=== PATIENT | female | born 1955 | race Caucasian/White ===

== ENCOUNTER → 2020-05-12 | Outpatient (CLI) | payer OTHER | LOC: LABNPT 06:45 | PROVIDERS: ATTEND Orthopaedic Surgery | DX: Z01.812 Encounter for preprocedural laboratory examination (principal); Z20.822 Contact with and (suspected) exposure to COVID-19 | CPT/HCPCS: 87635 ==

== ENCOUNTER 2021-04-20 15:32 | Emergency (ER) | payer OTHER ==
[~2021-04-20] VITALS: Ht 165 cm; Wt 72.7 kg
[2021-04-20 16:32] LABS: BASOPHILS # (AUTO) 0.1 10^3/uL (0.0-0.1); BASOPHILS % (AUTO) 1 % (0-10); EOSINOPHILS # (AUTO) 0.1 10^3/uL (0.0-0.3); EOSINOPHILS % (AUTO) 1 % (0-10); HEMATOCRIT 47 % (35-52); HEMOGLOBIN 15.6 g/dL (11.5-16.0); LYMPHOCYTES # (AUTO) 1.5 10^3/uL (1.0-4.0); LYMPHOCYTES % (AUTO) 15 % (12-44); MEAN CORPUSCULAR HEMOGLOBIN 30 pg (25-34); MEAN CORPUSCULAR HGB CONC 33 g/dL (32-36); MEAN CORPUSCULAR VOLUME 89 fL (80-99); MEAN PLATELET VOLUME 9.1 fL (9.0-12.2); MONOCYTES # (AUTO) 0.6 10^3/uL (0.0-1.0); MONOCYTES % (AUTO) 6 % (0-12); NEUTROPHILS # (AUTO) 8.2 10^3/uL (1.8-7.8); NEUTROPHILS % (AUTO) 78 % (42-75); PLATELET COUNT 360 10^3/uL (130-400); WHITE BLOOD COUNT 10.6 10^3/uL (4.3-11.0)
[2021-04-20 16:33] LABS: ALBUMIN 4.8 GM/DL (3.2-4.5); CHLORIDE 105 MMOL/L (98-107); POTASSIUM 4.3 MMOL/L (3.6-5.0); SODIUM 138 MMOL/L (135-145)
[2021-04-20 16:34] LABS: CALCIUM 9.9 MG/DL (8.5-10.1)
[2021-04-20 16:35] LABS: GLUCOSE 135 MG/DL (70-105); TOTAL PROTEIN 8.5 GM/DL (6.4-8.2)
[2021-04-20 16:36] LABS: CARBON DIOXIDE 21 MMOL/L (21-32)
[2021-04-20 16:37] LABS: BILIRUBIN,TOTAL 1.2 MG/DL (0.1-1.0); INR 0.9 (0.8-1.4)
[2021-04-20 16:39] LABS: ALKALINE PHOSPHATASE 88 U/L (40-136); CREATININE SERUM 0.98 MG/DL (0.60-1.30); GFR ESTIMATED 64
[2021-04-20 16:40] LABS: BUN/CREATININE RATIO 14
[2021-04-20 16:42] LABS: ALANINE AMINOTRANSFERASE 28 U/L (0-55)
--- NOTE | 2021-04-20 16:44 | Diagnostic Imaging Report ---
PROCEDURE: CT head wo r/o stroke. TECHNIQUE: Multiple contiguous axial images were obtained through the brain without the use of intravenous contrast. Auto Exposure Controls were utilized during the CT exam to meet ALARA standards for radiation dose reduction. INDICATION: Neurologic deficit with confusion CT HEAD: CT images of the head were obtained. FINDINGS: Ventricles and sulci are within normal limits for size. There is no intracranial hemorrhage identified. There is no abnormal mass effect or shift of midline structures. IMPRESSION: Unremarkable CT of the head. Dictated by: Dictated on workstation # [id number]
--- NOTE | 2021-04-20 16:45 | Diagnostic Imaging Report ---
INDICATION: Confusion, panic attacks. FINDINGS: The lungs are clear. There is no failure, effusion or pneumothorax. IMPRESSION: No acute appearing abnormality. Dictated by: Dictated on workstation # [id number]
[2021-04-20 17:24] LABS: BILIRUBIN,URINE NEGATIVE (NEGATIVE); CLARITY,URINE SL CLOUDY; COLOR,URINE YELLOW; GLUCOSE, URINE (UA) NEGATIVE (NEGATIVE); KETONES,URINE NEGATIVE (NEGATIVE); LEUKOCYTE ESTERASE ,URINE 3+ (NEGATIVE); NITRITE,URINE NEGATIVE (NEGATIVE); PROTEIN,URINE NEGATIVE (NEGATIVE)
[2021-04-20 17:32] LABS: BACTERIA,URINE FEW /HPF; RBC,URINE 0-2 /HPF; SQUAMOUS EPITHELIAL CELL,UR 0-2 /HPF
[2021-04-20] MEDS ORDERED: CEPH500T PO (18:17)
--- NOTE | 2021-04-20 18:17 | ED Neurological Problem ---
General Chief Complaint: Neurological Problems Stated Complaint: L ARM WEAKNESS, STROKE SYMPTOMS Nursing Triage Note: AMB TO ED PATIENT STATES HER THOUGHTS ARE NOT CLEAR. TO ROOM REPORTS TEXTED HER AT 230 PM SHE WAS FINE WHEN HE GOT HOME WAS IN WHAT HE DESCRIBES A PANIC ATTACK ON ADMIT ANSWERS QUESTION. BUT TEARFUL WANTING TO KNOW WHERE IS. Source: patient Exam Limitations: no limitations History of Present Illness Date Seen by Provider: Apr 20, 2021 Time Seen by Provider: 15:48 Initial Comments This is 66-year-old emotionally distressed and tearful woman presents to the emergency room with vague complaints of simply not feeling right. She is having some difficulty with memory of events today although she is technically alert and oriented. She has no focal neurologic deficits although she does state earlier her left arm felt weak. No objective neurologic deficits are found on exam. Patient has had a distressing week as there has been discussion about her brother's cancer diagnosis. She received a message from him this morning that was possibly upsetting. Patient did not initially remember many details about this issue. Patient has a history of breast cancer herself which may make the news about her brother's cancer more distressing. Dr. Albin Ureña is her primary care provider. Allergies and Home Medications Patient Home Medication List Home Medication List Reviewed: Yes Cephalexin (Cephalexin) 500 Mg Tablet, 500 MG PO TID Prescribed by: SHAWN ROSARIO on 04/20/211816 Review of Systems Review of Systems Constitutional: no symptoms reported Eyes: No Symptoms Reported Ears, Nose, Mouth, Throat: no symptoms reported Respiratory: no symptoms reported Cardiovascular: see HPI Gastrointestinal: no symptoms reported Genitourinary: no symptoms reported : No Musculoskeletal: no symptoms reported Skin: no symptoms reported Psychiatric/Neurological: See HPI Endocrine: No Symptoms Reported Hematologic/Lymphatic: No Symptoms Reported Past Qumrbuj-Bbshpo-Pijidt Hx Patient Social History Tobacco Use?: No Substance use?: No Immunizations Up To Date First/Initial COVID19 Vaccinat: YES Second COVID19 Vaccination Tristian: YES COVID19 Vaccine Gem Technician: ? Past Medical History Surgeries: Yes Abdominal (Hernia), Breast (Lumpectomy), Orthopedic (Bilateral thumbs and trigger finger) Respiratory: No Cardiac: Yes Hypertension Neurological: No : No Reproductive Disorders: No Genitourinary: No Gastrointestinal: No Musculoskeletal: No Endocrine: No HEENT: No Cancer: Yes Breast What Type of Treatment Did You: Chemotherapy, Radiation, Surgical Intervention Psychosocial: No Physical Exam Vital Signs Vital Signs - First Documented 04/20/21 15:35 Temp 36.5 Pulse 116 Resp 18 B/P (MAP) 182/87 (118) Pulse Ox 98 O2 Delivery Room Air Capillary Refill : Less Than 3 Seconds Height, Weight, BMI Height: '" Weight: lbs. oz. kg; 26.00 BMI Method: General Appearance: WD/WN, mild distress (Mildly anxious, tearful) HEENT: PERRL/EOMI, normal ENT inspection Neck: normal inspection Respiratory: lungs clear, normal breath sounds, no respiratory distress Cardiovascular: regular rate, rhythm, no edema, no murmur Gastrointestinal: normal bowel sounds, non tender, soft Extremities: normal inspection, no pedal edema Neurologic/Psychiatric: education reporter II-XII nml as tested, no motor/sensory deficits, alert, oriented x 3, other (Anxious, tearful) Crainal Nerves: normal hearing, normal speech, PERRL Coordination/Gait: normal finger to nose, normal gait Motor/Sensory: no motor deficit, no sensory deficit Skin: normal color, warm/dry Stroke NIH Stroke Scale Assessment Level of Consciousness: 0=Alert (0), Level of Consciousness-Questions: 0=Answers both month/age (0), LOC Commands: 0=Performs both tasks (0), Visual Hill: 0=No visual loss (0), Facial Movement (Facial Paresis): 0=Normal symmetrical mnt (0), Motor Function-Arms Right: 0=No drift (0), Motor Function-Arms Left: 0=No drift (0), Motor Function-Legs Right: 0=No drift (0), Motor Function-Legs Left: 0=No drift (0), Limb Ataxia: 0=Absent (0), Sensory: 0=Normal:no loss (0), Best Language: 0=No aphasia (0), Dysarthria: 0=Normal (0), Extinction & Inattention: 0=No abnormality (0), Total: 0 Progress/Results/Core Measures Results/Orders Lab Results Laboratory Tests Test 04/20/21 15:40 04/20/21 16:18 04/20/21 17:15 Range/Units Glucometer 139 H 70-110 MG/DL White Blood Count 10.6 4.3-11.0 10^3/uL Red Blood Count 5.27 H 3.80-5.11 10^6/uL Hemoglobin 15.6 11.5-16.0 g/dL Hematocrit 47 35-52 % Mean Corpuscular Volume 89 80-99 fL Mean Corpuscular Hemoglobin 30 25-34 pg Mean Corpuscular Hemoglobin Concent 33 32-36 g/dL Red Cell Distribution Width 13.1 10.0-14.5 % Platelet Count 360 130-400 10^3/uL Mean Platelet Volume 9.1 9.0-12.2 fL Immature Granulocyte % (Auto) 0 % Neutrophils (%) (Auto) 78 H 42-75 % Lymphocytes (%) (Auto) 15 12-44 % Monocytes (%) (Auto) 6 0-12 % Eosinophils (%) (Auto) 1 0-10 % Basophils (%) (Auto) 1 0-10 % Neutrophils # (Auto) 8.2 H 1.8-7.8 10^3/uL Lymphocytes # (Auto) 1.5 1.0-4.0 10^3/uL Monocytes # (Auto) 0.6 0.0-1.0 10^3/uL Eosinophils # (Auto) 0.1 0.0-0.3 10^3/uL Basophils # (Auto) 0.1 0.0-0.1 10^3/uL Immature Granulocyte # (Auto) 0.0 0.0-0.1 10^3/uL Prothrombin Time 13.0 12.2-14.7 SEC INR Comment 0.9 0.8-1.4 Activated Partial Thromboplast Time 26 24-35 SEC Sodium Level 138 135-145 MMOL/L Potassium Level 4.3 3.6-5.0 MMOL/L Chloride Level 105 98-107 MMOL/L Carbon Dioxide Level 21 21-32 MMOL/L Anion Gap 12 5-14 MMOL/L Blood Urea Nitrogen 14 7-18 MG/DL Creatinine 0.98 0.60-1.30 MG/DL Estimat Glomerular Filtration Rate 64 BUN/Creatinine Ratio 14 Glucose Level 135 H 70-105 MG/DL Calcium Level 9.9 8.5-10.1 MG/DL Corrected Calcium 8.5-10.1 MG/DL Total Bilirubin 1.2 H 0.1-1.0 MG/DL Aspartate Amino Transf (AST/SGOT) 24 5-34 U/L Alanine Aminotransferase (ALT/SGPT) 28 0-55 U/L Alkaline Phosphatase 88 40-136 U/L Total Protein 8.5 H 6.4-8.2 GM/DL Albumin 4.8 H 3.2-4.5 GM/DL Urine Color YELLOW Urine Clarity SL CLOUDY Urine pH 6.0 5-9 Urine Specific [place] <=1.005 1.016-1.022 Urine Protein NEGATIVE NEGATIVE Urine Glucose (UA) NEGATIVE NEGATIVE Urine Ketones NEGATIVE NEGATIVE Urine Nitrite NEGATIVE NEGATIVE Urine Bilirubin NEGATIVE NEGATIVE Urine Urobilinogen 0.2 < = 1.0 MG/DL Urine Leukocyte Esterase 3+ H NEGATIVE Urine RBC (Auto) TRACE-I H NEGATIVE Urine RBC 0-2 /HPF Urine WBC 10-25 H /HPF Urine Squamous Epithelial Cells 0-2 /HPF Urine Crystals NONE /LPF Urine Bacteria FEW H /HPF Urine Casts NONE /LPF Urine Mucus NEGATIVE /LPF Urine Culture Indicated YES My Orders Orders - SHAWN BARROS MD Cbc With Automated Diff (04/20/21 16:24) Protime With Inr (04/20/21 16:24) Partial Thromboplastin Time (04/20/21 16:24) Comprehensive Metabolic Panel (04/20/21 16:24) Ua Culture If Indicated (04/20/21 16:24) Chest 1 View, Ap/Pa Only (04/20/21 16:24) Ekg Tracing (04/20/21 16:24) Ed Iv/Invasive Line Start (04/20/21 16:24) Vital Signs Stroke Patient Q15M (04/20/21 16:24) Monitor-Rhythm Ecg Trace Only (04/20/21 16:24) Dysphagia Screening Tool (04/20/21 16:24) Post Thrombolytic Adminstratio (04/20/21 16:24) Ct Head Wo-R/O Stroke (04/20/21 16:25) Urine Culture (04/20/21 17:15) Vital Signs/I&O 04/20/21 04/20/21 15:35 18:32 Temp 36.5 Pulse 116 100 Resp 18 18 B/P (MAP) 182/87 (118) 151/92 Pulse Ox 98 98 O2 Delivery Room Air Room Air Blood Pressure Mean: 118 Progress Progress Note : Progress Note Stroke activation was not paged as there was no objective evidence of stroke. NIH stroke score was 0. CT of the head was obtained and was unremarkable. Labs were unremarkable. Urinary tract infection was suggested by urinalysis. Keflex was prescribed. Patient's memory and mood were both near baseline and improved at the time of discharge. She never did develop any measurable neurologic deficits. I suspect her symptoms are largely due to acute stress reaction. She was noted to remain hypertensive. She attributes this to the anxiety of the situation and being in the hospital. She was encouraged to follow-up promptly at the clinic for repeat blood pressure checks. She did not want to change any of her medications or treatment for hypertension at this time. Although I feel TIA is rather unlikely in this scenario, I did suggest that she take aspirin 81 mg daily until follow-up with her primary care provider Initial ECG Impression Date: Apr 20, 2021 Initial ECG Impression Time: 17:10 Initial ECG Rate: 99 Initial ECG Rhythm: Normal Sinus Comment Normal sinus rhythm with no ST elevation or depression. No abnormal intervals or axis deviation. Diagnostic Imaging Diagonstic Imaging: CT Plain Films/CT/US/NM/MRI: head Comments NAME: CESAR HERNANDEZ MED REC#: [id number] PT STATUS: REG ER : 1955 PHYSICIAN: SHAWN BARROS MD ADMIT DATE: 04/20/21/ER Signed Date of Exam:04/20/21 CT HEAD WO-R/O STROKE PROCEDURE: CT head wo r/o stroke. TECHNIQUE: Multiple contiguous axial images were obtained through the brain without the use of intravenous contrast. Auto Exposure Controls were utilized during the CT exam to meet ALARA standards for radiation dose reduction. INDICATION: Neurologic deficit with confusion CT HEAD: CT images of the head were obtained. FINDINGS: Ventricles and sulci are within normal limits for size. There is no intracranial hemorrhage identified. There is no abnormal mass effect or shift of midline structures. IMPRESSION: Unremarkable CT of the head. Dictated by: Dictated on workstation # [id number] Dict: 04/20/21 164 Trans: 04/20/211642 [id number] Interpreted by: BLANCA ENAMORADO MD Electronically signed by: BLANCA ENAMORADO MD 04/20/211642 Diagonstic Imaging: Xray Plain Films/CT/US/NM/MRI: chest Comments NAME: CESAR HERNANDEZ [facility] REC#: [id number] PT STATUS: REG ER : 1955 PHYSICIAN: SHAWN BARROS MD ADMIT DATE: 04/20/21/ER Signed Date of Exam:04/20/21 CHEST 1 VIEW, AP/PA ONLY INDICATION: Confusion, panic attacks. FINDINGS: The lungs are clear. There is no failure, effusion or pneumothorax. IMPRESSION: No acute appearing abnormality. Dictated by: Dictated on workstation # [id number] Dict: 04/20/21 1644 Trans: 04/20/211649 [facility] [id number] Interpreted by: BLANCA ALTMAN Electronically signed by: BLANCA ALTMAN 04/20/211649 Departure Impression Primary Impression: Urinary tract infection Qualified Codes: N39.0 - Urinary tract infection, site not specified Additional Impressions: Confusion Hypertension Qualified Codes: I10 - Essential (primary) hypertension Acute stress reaction History of breast cancer Disposition: HOME, SELF-CARE Condition: Improved Departure-Patient Inst. Decision time for Depature: 18:14 Referrals: NO,LOCAL PHYSICIAN (PCP/Family) Primary Care Physician Patient Instructions: High Blood Pressure ED Add. Discharge Instructions: Continue your current medications as previously prescribed. Add aspirin 81 mg daily starting this evening until you are able to discuss with your primary care provider. Please follow-up with your primary care provider soon as possible. Complete your antibiotic as prescribed for bladder infection. You should review urine culture results with your primary care provider next week. Consider stopping by your primary care office once or twice over the next week t o have your blood pressure checked. Return to the emergency room if you have worsening symptoms despite following these instructions. In particular, return to the emergency room immediately if you develop any signs or symptoms of stroke that might include numbness or weakness of a body part, drooping of the face, difficulty producing or understanding speech, abrupt vision changes, loss of balance, severe headache, or any other sudden neurologic changes. All discharge instructions reviewed with patient and/or family. Voiced understanding. Scripts Cephalexin (Cephalexin) 500 Mg Tablet 500 MG PO TID, #20 TAB Prov: SHAWN BARROS MD 04/20/21 Copy Copies To 1: GURJIT GASCA JOSHUA T MD Apr 20, 2021 18:17
[2021-04-20 18:32] VITALS: BP 151/92
== END 2021-04-20 18:35 | disposition home or self-care (01) ==
LOC: EDUNIT# 15:32 → ER 15:35
DX: N39.0 Urinary tract infection, site not specified (principal); R41.0 Disorientation, unspecified; I10 Essential (primary) hypertension; F43.0 Acute stress reaction; Z85.3 Personal history of malignant neoplasm of breast
CPT/HCPCS: 36415; 70450; 71045; 80053; 81000; 82947; 85025; 85610; 85730; 87088; 93005; 93041

== ENCOUNTER 2022-05-14 13:53 | Emergency (ER) | payer MEDICARE, OTHER ==
[~2022-05-14] VITALS: Ht 165.1 cm; Wt 75.0 kg
[~2022-05-14 13:53] MED LIST: CEPH500T PO
[2022-05-14 14:31] LABS: BILIRUBIN,URINE NEGATIVE (NEGATIVE); CLARITY,URINE CLEAR; COLOR,URINE YELLOW; GLUCOSE, URINE (UA) NEGATIVE (NEGATIVE); KETONES,URINE NEGATIVE (NEGATIVE); LEUKOCYTE ESTERASE ,URINE 1+ (NEGATIVE); NITRITE,URINE NEGATIVE (NEGATIVE); PROTEIN,URINE NEGATIVE (NEGATIVE)
[2022-05-14 14:40] LABS: BASOPHILS # (AUTO) 0.1 10^3/uL (0.0-0.1); BASOPHILS % (AUTO) 1 % (0-10); EOSINOPHILS # (AUTO) 0.2 10^3/uL (0.0-0.3); EOSINOPHILS % (AUTO) 2 % (0-10); HEMATOCRIT 46 % (35-52); HEMOGLOBIN 15.3 g/dL (11.5-16.0); LYMPHOCYTES # (AUTO) 2.3 10^3/uL (1.0-4.0); LYMPHOCYTES % (AUTO) 26 % (12-44); MEAN CORPUSCULAR HEMOGLOBIN 29 pg (25-34); MEAN CORPUSCULAR HGB CONC 34 g/dL (32-36); MEAN CORPUSCULAR VOLUME 86 fL (80-99); MEAN PLATELET VOLUME 9.6 fL (9.0-12.2); MONOCYTES # (AUTO) 0.8 10^3/uL (0.0-1.0); MONOCYTES % (AUTO) 9 % (0-12); NEUTROPHILS # (AUTO) 5.5 10^3/uL (1.8-7.8); NEUTROPHILS % (AUTO) 63 % (42-75); PLATELET COUNT 330 10^3/uL (130-400); WHITE BLOOD COUNT 8.8 10^3/uL (4.3-11.0)
[2022-05-14] MEDS ORDERED: NITROGLYCERIN 2% OINT 1 GM UNIT DOSE PACKET TOP ONE (14:45)
[2022-05-14] MEDS ORDERED: ASPIRIN 81 MG CHEW (CHILDREN'S ASA) PO ONE (14:45)
[2022-05-14 14:51] LABS: ALBUMIN 4.6 GM/DL (3.2-4.5)
[2022-05-14 14:52] LABS: CHLORIDE 104 MMOL/L (98-107); SODIUM 138 MMOL/L (135-145)
[2022-05-14 14:52] LABS: BACTERIA,URINE NEGATIVE /HPF; SQUAMOUS EPITHELIAL CELL,UR 0-2 /HPF; WBC,URINE 0-2 /HPF
[2022-05-14 14:53] LABS: AMYLASE 48 U/L (25-125); CALCIUM 9.8 MG/DL (8.5-10.1)
[2022-05-14 14:54] LABS: GLUCOSE 134 MG/DL (70-105); TOTAL PROTEIN 7.8 GM/DL (6.4-8.2)
[2022-05-14 14:55] LABS: CARBON DIOXIDE 20 MMOL/L (21-32); FIBRIN DEGRADATION PRODUCTS 0.4 UG/ML (0.00-0.49); INR 0.9 (0.8-1.4)
[2022-05-14 14:56] LABS: BILIRUBIN,TOTAL 1.5 MG/DL (0.1-1.0)
[2022-05-14 14:57] LABS: ALKALINE PHOSPHATASE 82 U/L (40-136)
[2022-05-14 14:58] LABS: CREATININE SERUM 0.98 MG/DL (0.60-1.30); GFR ESTIMATED 64
[2022-05-14 14:59] LABS: BUN/CREATININE RATIO 15; ERYTHROCYTE SEDIMENTATION RATE 3 MM/HR (0-30)
--- NOTE | 2022-05-14 14:59 | Diagnostic Imaging Report ---
INDICATION: Chest pain and hypertension. Frontal chest obtained at 2:32 p.m. FINDINGS: Heart and mediastinal silhouette are normal in appearance. The lungs are clear. There is no pneumothorax or pleural fluid. IMPRESSION: Negative chest. Dictated by: Dictated on workstation # [id number]
[2022-05-14 15:00] LABS: ALANINE AMINOTRANSFERASE 28 U/L (0-55)
[2022-05-14 15:01] LABS: MAGNESIUM 2.1 MG/DL (1.6-2.4)
[2022-05-14 15:02] LABS: CREATINE KINASE 524 U/L (29-168); LIPASE 29 U/L (8-78)
[2022-05-14 15:10] LABS: CREATINE KINASE MB 1.3 NG/ML (<6.6)
[2022-05-14 15:22] LABS: TSH (THYROID ANALYZER) 1.48 UIU/ML (0.35-4.94)
[2022-05-14] MEDS ORDERED: NS 100 ML (IVPB) BAG IV ONE (16:00)
[2022-05-14] MEDS ORDERED: fentaNYL INJ 100 MCG/2 ML AMP IVP ONE ×2 (16:00→17:45)
[2022-05-14] MEDS ORDERED: IOHEXOL 350 MG/ML 100 ML (OMNIPAQUE 350) VIAL IV ONE (16:00)
[2022-05-14] MEDS ORDERED: HOLD METFORMIN - RECEIVED CONTRAST 20 ML VIAL IV SCH (16:00)
--- NOTE | 2022-05-14 17:10 | Diagnostic Imaging Report ---
EXAM: CT angiography chest with intravenous contrast. CT abdomen and pelvis with intravenous contrast. DATE: May 14, 2022. INDICATION: 67-year-old female, chest and abdominal pain. History of breast cancer. COMPARISON: Chest radiograph May 14, 2022. TECHNIQUE: Axial CT angiographic images of the chest were obtained with intravenous contrast. Coronal and sagittal as well as 3-dimensional reformats were obtained and provided. Axial CT images of the abdomen and pelvis were obtained with intravenous contrast. Coronal and sagittal reformats were obtained and provided. All CT scans use one or more of the following dose optimizing techniques: automated exposure control, MA and/or KvP adjustment based on patient size and exam type or iterative reconstruction. FINDINGS: There is very mild atelectasis and/or scarring in the right lower lobe. There is minimal scarring and/or atelectasis in the left upper lobe and left lower lobe. There is no pulmonary nodule. There is no lung mass. There is no otherwise noted focal airspace consolidation. There is no pneumothorax. There is no pleural effusion. The central airways are patent. There is no identified pulmonary embolus. The heart is not enlarged. There is no pericardial effusion. There are atherosclerotic calcifications. There is no evidence of aortic dissection or acute aortic injury. There is no identified abnormally enlarged mediastinal, hilar, or axillary lymph node which meets CT size criteria for adenopathy. The liver is unremarkable in size and contour. There is a low-attenuation lesion in the left lobe of the liver measuring 2.3 cm in size, compatible with a benign cyst. There are subcentimeter low-attenuation foci in the right lobe of the liver which are too small to characterize. The main, right, and left portal veins are patent. The gallbladder is unremarkable. There is no biliary ductal dilation. Unremarkable appearance of the pancreas. The spleen is normal in size. The adrenal glands are unremarkable. Unremarkable appearance of the renal parenchyma. The urinary collecting systems are not distended. There is no identified renal or ureteral stone. The urinary bladder is unremarkable. There is diverticulosis without evidence of acute diverticulitis. The appendix is unremarkable. The intestinal tract is not distended. There is no free intraperitoneal air. There is no drainable fluid collection. There is no free fluid in the abdomen or pelvis. There are atherosclerotic calcifications. There is no identified abnormally enlarged lymph node in the abdomen or pelvis which meets CT size criteria for adenopathy. There is no identified acute bony abnormality. IMPRESSION: No identified acute abnormality at the level of the chest, abdomen, or pelvis. Dictated by: Dictated on workstation # [id number]
--- NOTE | 2022-05-14 17:16 | ED General ---
General Chief Complaint: General Problems/Pain Stated Complaint: RT ARM PAIN | BACK PAIN | ELEVATED BLOOD PRESSURE Nursing Triage Note: AMB TO TRIAGE ROOM WITH C/O RIGHT ARM, SIDE AND BACK PAIN THAT STARTED ABOUT 2 HOURS AGO. ALSO HAVING LEFT RIB PAIN STATES SHE IS UNSURE IF THEY ARE RELATED BUT SHE JUST DOESNT FEEL RIGHT AND NOTICED HER BLOOD PRESSURE WAS HIGH AT HOME. VERBALIZES SHE TAKES LISINOPRIL 40MG NIGHTLY. RATES HER PAIN A 7/10 ON PAIN SCALE Allergies and Home Medications Allergies Coded Allergies: No Known Drug Allergies (Unverified , 05/14/22) Patient Home Medication List Cephalexin (Cephalexin) 500 Mg Tablet, 500 MG PO TID Prescribed by: SHAWN ROSARIO on 04/20/211816 Past [id number] Hx Patient Social History Tobacco Use?: No Use of E-Cig and/or Vaping dev: No Substance use?: No Alcohol Use?: No Pt feels they are or have been: No Immunizations Up To Date Influenza Vaccine Up-to-Date: No; Not Current First/Initial COVID19 Vaccinat: YES Second COVID19 Vaccination Tristian: YES Third COVID19 Vaccination Date: YES Past Medical History Surgery/Hospitalization HX: HTN, BREAST CANCER LEFT LUMPECTOMY, LEFT LYMPHNODES Surgeries: Yes Abdominal, Breast, Orthopedic Respiratory: No Cardiac: Yes Hypertension Neurological: No Reproductive Disorders: No Genitourinary: No Gastrointestinal: No Musculoskeletal: No Endocrine: No HEENT: No Cancer: Yes Breast What Type of Treatment Did You: Chemotherapy, Radiation, Surgical Intervention Psychosocial: No Physical Exam Vital Signs Vital Signs - First Documented 05/14/22 14:00 Temp 36.6 Pulse 114 Resp 18 B/P (MAP) 193/97 (129) Pulse Ox 98 O2 Delivery Room Air Capillary Refill : Less Than 3 Seconds Height, Weight, BMI Height: '" Weight: lbs. oz. kg; 27.00 BMI Method: Progress/Results/Core Measures Suspected Sepsis SIRS Temperature: Pulse: 114 Respiratory Rate: 18 Laboratory Tests 05/14/22 14:33: White Blood Count 8.8 Blood Pressure 193 /97 Mean: 129 Laboratory Tests 05/14/22 14:33: Creatinine 0.98, INR Comment 0.9, Platelet Count 330, Total Bilirubin 1.5H Results/Orders Lab Results Laboratory Tests Test 05/14/22 14:15 05/14/22 14:33 05/14/22 16:33 05/14/22 17:25 Range/Units Urine Color YELLOW Urine Clarity CLEAR Urine pH 6.0 5-9 Urine Specific [place] <=1.005 1.016-1.022 Urine Protein NEGATIVE NEGATIVE Urine Glucose (UA) NEGATIVE NEGATIVE Urine Ketones NEGATIVE NEGATIVE Urine Nitrite NEGATIVE NEGATIVE Urine Bilirubin NEGATIVE NEGATIVE Urine Urobilinogen 0.2 < = 1.0 MG/DL Urine Leukocyte Esterase 1+ H NEGATIVE Urine RBC (Auto) NEGATIVE NEGATIVE Urine RBC NONE /HPF Urine WBC 0-2 /HPF Urine Squamous Epithelial Cells 0-2 /HPF Urine Crystals NONE /LPF Urine Bacteria NEGATIVE /HPF Urine Casts NONE /LPF Urine Mucus NEGATIVE /LPF Urine Culture Indicated NO White Blood Count 8.8 4.3-11.0 10^3/uL Red Blood Count 5.29 H 3.80-5.11 10^6/uL Hemoglobin 15.3 11.5-16.0 g/dL Hematocrit 46 35-52 % Mean Corpuscular Volume 86 80-99 fL Mean Corpuscular Hemoglobin 29 25-34 pg Mean Corpuscular Hemoglobin Concent 34 32-36 g/dL Red Cell Distribution Width 13.1 10.0-14.5 % Platelet Count 330 130-400 10^3/uL Mean Platelet Volume 9.6 9.0-12.2 fL Immature Granulocyte % (Auto) 0 % Neutrophils (%) (Auto) 63 42-75 % Lymphocytes (%) (Auto) 26 12-44 % Monocytes (%) (Auto) 9 0-12 % Eosinophils (%) (Auto) 2 0-10 % Basophils (%) (Auto) 1 0-10 % Neutrophils # (Auto) 5.5 1.8-7.8 10^3/uL Lymphocytes # (Auto) 2.3 1.0-4.0 10^3/uL Monocytes # (Auto) 0.8 0.0-1.0 10^3/uL Eosinophils # (Auto) 0.2 0.0-0.3 10^3/uL Basophils # (Auto) 0.1 0.0-0.1 10^3/uL Immature Granulocyte # (Auto) 0.0 0.0-0.1 10^3/uL Erythrocyte Sedimentation Rate 3 0-30 MM/HR Prothrombin Time 13.0 12.2-14.7 SEC INR Comment 0.9 0.8-1.4 Activated Partial Thromboplast Time 26 24-35 SEC D-Dimer 0.40 0.00-0.49 UG/ML Sodium Level 138 135-145 MMOL/L Potassium Level 4.0 3.6-5.0 MMOL/L Chloride Level 104 98-107 MMOL/L Carbon Dioxide Level 20 L 21-32 MMOL/L Anion Gap 14 5-14 MMOL/L Blood Urea Nitrogen 15 7-18 MG/DL Creatinine 0.98 0.60-1.30 MG/DL Estimat Glomerular Filtration Rate 64 BUN/Creatinine Ratio 15 Glucose Level 134 H 70-105 MG/DL Calcium Level 9.8 8.5-10.1 MG/DL Corrected Calcium 8.5-10.1 MG/DL Magnesium Level 2.1 1.6-2.4 MG/DL Total Bilirubin 1.5 H 0.1-1.0 MG/DL Aspartate Amino Transf (AST/SGOT) 20 5-34 U/L Alanine Aminotransferase (ALT/SGPT) 28 0-55 U/L Alkaline Phosphatase 82 40-136 U/L Total Creatine Kinase 524 H 29-168 U/L Creatine Kinase MB 1.3 <6.6 NG/ML Myoglobin 1054.6 H 10.0-92.0 NG/ML Troponin I < 0.028 < 0.028 <0.028 NG/ML C-Reactive Protein High Sensitivity 0.24 0.00-0.50 MG/DL Total Protein 7.8 6.4-8.2 GM/DL Albumin 4.6 H 3.2-4.5 GM/DL Amylase Level 48 25-125 U/L Lipase 29 8-78 U/L TSH [place] Testing 1.48 0.35-4.94 UIU/ML B-Type Natriuretic Peptide < 10.0 <100.0 PG/ML My Orders Orders - ASHLEY NOVA DO Ed Iv/Invasive Line Start (05/14/22 14:22) Ekg Tracing (05/14/22 14:22) O2 (05/14/22 14:22) Monitor-Rhythm Ecg Trace Only (05/14/22 14:22) Amylase (05/14/22 14:22) Bnp Gar[place] (05/14/22 14:22) Cbc With Automated Diff (05/14/22 14:22) Comprehensive Metabolic Panel (05/14/22 14:22) Creatine Kinase (05/14/22 14:22) Creatine Kinase Mb (05/14/22 14:22) Hs C Reactive Protein (05/14/22 14:22) Fibrin Degradation Products (05/14/22 14:22) Lipase (05/14/22 14:22) Magnesium (05/14/22 14:22) Protime With Inr (05/14/22 14:22) Partial Thromboplastin Time (05/14/22 14:22) Thyroid Analyzer (05/14/22 14:22) Ua Culture If Indicated (05/14/22 14:22) Erythrocyte Sedimentation Rate (05/14/22 14:22) Myoglobin Serum (05/14/22 14:22) Troponin I Garrick (05/14/22 14:22) Chest 1 View, Ap/Pa Only (05/14/22 14:22) Aspirin Chewable Tablet (Baby Aspirin Ch (05/14/22 14:45) Nitroglycerin Ointment (Nitrobid Ointme (05/14/22 14:45) Ct [place] Chest/Noang Abd-Pelv W (05/14/22 15:51) Fentanyl Inj (Sublimaze Injection) (05/14/22 16:00) Iohexol Injection (Omnipaque 350 Mg/Ml 1 (05/14/22 16:00) Received Contrast (Hold Metformin- Contr (05/14/22 16:00) Ns (Ivpb) (Sodium Chloride 0.9% Ivpb Bag (05/14/22 16:00) Troponin I Garrick (05/14/22 17:16) Ekg Tracing (05/14/22 17:16) Fentanyl Inj (Sublimaze Injection) (05/14/22 17:45) Medications Given in ED Current Medications Medications Dose Ordered Sig/Chris Route Start Time Stop Time Status Last Admin Dose Admin Aspirin 324 mg ONCE ONCE PO 05/14/22 14:45 05/14/22 14:46 DC 05/14/22 15:36 324 MG Fentanyl Citrate 50 mcg ONCE ONCE IVP 05/14/22 16:00 05/14/22 16:01 DC 05/14/22 16:22 50 MCG Fentanyl Citrate 50 mcg ONCE ONCE IVP 05/14/22 17:45 05/14/22 17:46 DC 05/14/22 17:55 50 MCG Iohexol 75 ml ONCE ONCE IV 05/14/22 16:00 05/14/22 16:01 DC 05/14/22 16:22 75 ML Nitroglycerin 1 inch ONCE ONCE TOP 05/14/22 14:45 05/14/22 14:46 DC 05/14/22 15:36 1 INCH Sodium Chloride 100 ml ONCE ONCE IV 05/14/22 16:00 05/14/22 16:01 DC 05/14/22 16:22 80 ML Vital Signs/I&O 05/14/22 14:00 Temp 36.6 Pulse 114 Resp 18 B/P (MAP) 193/97 (129) Pulse Ox 98 O2 Delivery Room Air Capillary Refill : Less Than 3 Seconds Blood Pressure Mean: 129 Diagnostic Imaging Comments CXR--PER RADIOLOGIST REPORT CT ANGIOGRAM CHEST / ABDOMEN-PELVIS--PER RADIOLOGIST REPORT AT 1716 FINDINGS: There is very mild atelectasis and/or scarring in the right lower lobe. There is minimal scarring and/or atelectasis in the left upper lobe and left lower lobe. There is no pulmonary nodule. There is no lung mass. There is no otherwise noted focal airspace consolidation. There is no pneumothorax. There is no pleural effusion. The central airways are patent. There is no identified pulmonary embolus. The heart is not enlarged. There is no pericardial effusion. There are atherosclerotic calcifications. There is no evidence of aortic dissection or acute aortic injury. There is no identified abnormally enlarged mediastinal, hilar, or axillary lymph node which meets CT size criteria for adenopathy. The liver is unremarkable in size and contour. There is a low-attenuation lesion in the left lobe of the liver measuring 2.3 cm in size, compatible with a benign cyst. There are subcentimeter low-attenuation foci in the right lobe of the liver which are too small to characterize. The main, right, and left portal veins are patent. The gallbladder is unremarkable. There is no biliary ductal dilation. Unremarkable appearance of the pancreas. The spleen is normal in size. The adrenal glands are unremarkable. Unremarkable appearance of the renal parenchyma. The urinary collecting systems are not distended. There is no identified renal or ureteral stone. The urinary bladder is unremarkable. There is diverticulosis without evidence of acute diverticulitis. The appendix is unremarkable. The intestinal tract is not distended. There is no free intraperitoneal air. There is no drainable fluid collection. There is no free fluid in the abdomen or pelvis. There are atherosclerotic calcifications. There is no identified abnormally enlarged lymph node in the abdomen or pelvis which meets CT size criteria for adenopathy. There is no identified acute bony abnormality. IMPRESSION: No identified acute abnormality at the level of the chest, abdomen, or pelvis. Reviewed: Reviewed by Me Departure Impression Primary Impression: Uncontrolled hypertension Disposition: HOME, SELF-CARE Condition: Improved Departure-Patient Inst. Decision time for Depature: 18:11 Referrals: [facility] (PCP/Family) Primary Care Physician Patient Instructions: High Blood Pressure (DC), DASH Diet Add. Discharge Instructions: HOME, REST TYLENOL AND MOTRIN NEEDED FOR PAIN CONTINUE LISINOPRIL 40 MG DAILY FOLLOW UP WITH YOUR DR LATER THIS WEEK OR EARLY NEXT WEEK FOR FURTHER CARE--CALL IN AM TO SCHEDULE APPOINTMENT All discharge instructions reviewed with patient and/or family. Voiced understanding. Scripts Metoprolol Succinate (Toprol Xl) 50 Mg Tab.er.24h 50 MG PO DAILY, #30 TAB Prov: ASHLEY NOVA DO 05/14/22 ASHLEY NOVA DO May 14, 2022 17:16
[2022-05-14] MEDS ORDERED: METO-352 PO (18:12)
[2022-05-14 18:27] VITALS: BP 174/98
== END 2022-05-14 18:27 | disposition home or self-care (01) ==
LOC: EDUNIT# 13:53 → ER 13:56
DX: I10 Essential (primary) hypertension (principal)
CPT/HCPCS: 36415; 71045; 71275; 74177; 80053; 81000; 82150; 82550; 82553; 83690; 83735; 83874; 83880; 84443; 84484; 85025; 85379; 85610; 85652; 85730; 86141; 93005; 93041